=== PATIENT | male | born 1960 | race African-American/Black ===

== ENCOUNTER 2025-08-25 08:59 | Emergency (ER) | payer OTHER ==
[~2025-08-25] VITALS: Ht 167.6 cm; Wt 77.0 kg
[2025-08-25 09:02] VITALS: O2SAT 98
[2025-08-25 10:21] LABS: BASOPHILS % 0.8 % (0.0-2.0); EOSINOPHILS % 1.6 % (0.0-5.0); HEMATOCRIT. 42.8 % (42.0-52.0); HEMOGLOBIN. 14.1 g/dL (14.0-18.0); LYMPHOCYTES % 46.5 % (20.0-50.0); MEAN PLATELET VOLUME 9.9 fl (7.4-10.4); MONOCYTES % 9.3 % (2.0-8.0); NEUTROPHILS % 41.8 % (40.0-76.0); PLATELET 152 x1000/uL (130-400); RED BLOOD CELL COUNT 4.91 mill/uL (4.7-6.1); RED CELL DISTRIBUTION WIDTH 14.3 % (11.6-14.6)
[2025-08-25 10:39] LABS: CREATININE 1.2 mg/dL (0.6-1.3); UREA NITROGEN BLOOD 11 mg/dL (9-23)
[2025-08-25 10:41] LABS: TROPONIN I HIGH SENSITIVITY 6 ng/L (3.0-53)
[2025-08-25] MEDS: IOHEXOL-350 100 ML BOTTLE ONE (12:59)
[2025-08-25 13:34] LABS: TROPONIN I HIGH SENSITIVITY 7 ng/L (3.0-53)
[2025-08-25 14:15] VITALS: BP 144/94; PULSE 52; RESP 19; TEMP 36.8; O2SAT 100
== END 2025-08-25 14:40 | disposition short-term general hospital (02) ==
LOC: ER 08:59 → CMPBEDREQ 16:25
DX: I10 Essential (primary) hypertension (principal); Z85.46 Personal history of malignant neoplasm of prostate; Z86.711 Personal history of pulmonary embolism; R07.89 Other chest pain
CPT/HCPCS: 80048; 85025; 84484; 36415; 71045; 71275; 93005; 99285; Q9967; Z7610; A4606